=== PATIENT | male | born 1955 | race Caucasian/White ===

== ENCOUNTER 2018-02-24 09:19 | Inpatient (IN) | payer OTHER ==
--- NOTE | 2018-02-20 13:13 | NUR ---
LEFT MESSAGE FOR PT TO OBTAIN PRE-SURGICAL INFORMATION.
[~2018-02-24] VITALS: Ht 185.4 cm; Wt 125.2 kg
--- NOTE | ~2018-02-24 | H ---
[address] [address] HISTORY AND PHYSICAL Name: ALIE CEVALLOS Room: [address] IN ..#: [id number] Admission: 02/24/18 Attend Phys: Eusebio Clement DO Discharge: 02/27/18 Date of : 53 Report #: [id number] THIS REPORT FOR: //name// Please refer to the History and Physical performed in the physician's office. By: 1302Medical Records Staff ALVARO /DIMITRIS
[~2018-02-24 09:19] MED LIST: ASPIR 8181 MG PO; ATORVASTATIN CA40 MG PO; BENTYL 20 MG TA20 M1 PO; LISINOPRIL5 MG PO; PLAVIX 75 MG TA75 M1 PO; TOPROL XL50 MG PO
[2018-02-24 09:43] LABS: HEMATOCRIT 51.8 % (42.0-52.0); HEMOGLOBIN 17.5 gm/dL (14.0-18.0); MCHC 33.8 g/dL (28.0-37.0); MCV 91.7 fL (80.0-100.0); MPV 9.5 fl. (7.2-11.1); RBC 5.65 mil/uL (4.50-6.00); RDW-CV 14.4 % (10.5-14.5); WBC 8.3 thou/uL (4.0-11.0)
[2018-02-24 09:49] LABS: CALCIUM 8.4 mg/dL (8.5-10.1); CREATININE 1.2 mg/dL (0.6-1.3)
[2018-02-24 09:59] LABS: ALBUMIN 3.3 g/dL (3.4-5.0); TOTAL BILIRUBIN 0.6 mg/dL (<0.1-1.0); TOTAL PROTEIN 7.6 g/dL (6.4-8.2)
[2018-02-24 10:00] VITALS: BP 144/87
--- NOTE | 2018-02-24 13:03 | EKG ---
[place] [address] ELECTROCARDIOGRAM REPORT Name: ALIE CEVALLOS Room: [facility]#: [id number] Admission: 02/24/18 Attend Phys: Eusebio Clement DO Discharge: Date of : 53 Report #: [id number] THIS REPORT FOR: //name// [facility] Test Date: 2018-02-24 Test Time: 09:56:09 Pat Name: ALIE CEVALLOS Department: Room: Gender: M Payroll Technician: : 1955 Requested By: Eusebio Clement Order Number: [id number] Reading : Ke Zamarripa Measurements Intervals [place] Rate: 72 P: 47 IA: 196 QRS: 75 QRSD: 109 T: 18 QT: 439 QTc: 481 Interpretive Statements Sinus rhythm Ventricular premature complex Compared to ECG 10/22/2007 15:59:32 Ventricular premature complex(es) now present Electronically Signed On 02-24-2018 13:03:33 CDT by Ke Zamarripa [email or web address] <ELECTRONICALLY SIGNED> By: Ke Zamarripa MD, [facility] 02/24/18 1303 [id number] Ke Zamarripa MD, FACC /EPI
[2018-02-24 16:15] VITALS: BP 14/99; BP 145/99
--- NOTE | 2018-02-24 18:50 | NUR ---
PATIENT ADMITTED TO ROOM 222 FROM PACU S/P INCISIONAL AND RIGHT INGUINAL HERNIA REPAIR WITH MESH. PATIENT'S ASSESSMENT COMPLETED, ADMISSION HISTORY OBTAINED WITH ASSIST OF PATIENT'S . PATIENT MOANING AND UNABLE TO RATE PAIN SINCE BEING ADMITTED. PATIENT ON PARK ACTIVITIES COORDINATOR, TRACING SR/ST. PATIENT TITRATED FROM 50% VM TO 10L HIGH FLOW NASAL CANNULA, SATS MAINTAINING AT 92-93%, CONTINUOUS PULSE OX IN PLACE. PATIENT'S NELSON PATENT AND DRAINING. MIDLINE ABDOMINAL DRESSING INTACT WITH BRENDA DRAIN IN PLACE. DRESSING TO RIGHT GROIN INTACT WITH SLING IN PLACE. SCDS IN PLACE. SALINE LOCK PATENT. PATIENT GIVEN PAIN X 1 WITH GOOD RELIEF. ENCOURAGED PATIENT TURN, DEEP BREATH AND COUGH, PILLOW IN PLACE WITH ABDOMINAL BINDER IN PLACE. FAMILY AT BEDSIDE THIS SHIFT. FALL PRECAUTIONS IN PLACE. CALL LIGHT WITHIN REACH. WILL CONTINUE WITH PLAN OF CARE.
[2018-02-24 20:00] VITALS: BP 136/96
[2018-02-25] VITALS: BP 149/99
[2018-02-25 04:00] VITALS: BP 135/91
[2018-02-25 04:53] LABS: HEMATOCRIT 50.3 % (42.0-52.0); HEMOGLOBIN 16.9 gm/dL (14.0-18.0); MCH 30.9 pg (26.0-34.0); MCHC 33.6 g/dL (28.0-37.0); MCV 91.9 fL (80.0-100.0); NUCLEATED RBCS 0 /100WBC; PLATELET COUNT* 178 thou/uL (150-400); RBC 5.48 mil/uL (4.50-6.00); WBC 11.7 thou/uL (4.0-11.0)
--- NOTE | 2018-02-25 05:03 | NUR ---
ASSUMED PT BNCARE AT 1930, PT IS A&OX4, PT IS TRACING NDR ON THE MONITOR, ON 11LHFNC, PT STILL C/O PAIN, PRN PAIN MEDICATIONS GIVEN PER AUG. PT HAS A NELSON TO DD, MIDLINE INCISION, CLOSED WITH YESY, RIGHT GROIN INCISION, INCISIONS CDI AND COVERED. PT HAS ABD BINDER IN PLACE, BRENDA DRAIN TO LUQ. BED IN LOW POSITION, CALL LIGHT IN REACH, BED ALARM ON, YELLOW ARM BAND AND SOCKS IN PLACE. HOURLY ROUNDING COMPLETED FOR PT SAFETY.
[2018-02-25 05:07] LABS: CALCIUM 8.1 mg/dL (8.5-10.1); CREATININE 1.2 mg/dL (0.6-1.3); POTASSIUM 4.1 mmol/L (3.5-5.1)
[2018-02-25 05:55] LABS: ABSOLUTE LYMPHOCYTES 1.4 thou/uL (0.8-5.3); ABSOLUTE MONOCYTES 0.2 thou/uL (0.0-1.2); ABSOLUTE NEUTROPHILS 10.1 thou/uL (1.6-8.1); ANISOCYTOSIS 1+; PLATELET ESTIMATE ADEQUATE; POIKILOCYTOSIS 1+
[2018-02-25 07:30] VITALS: BP 151/99
[2018-02-25 09:13] LABS: HBsAG-EMPLOYEE EXPOSURE Negative (Negative)
--- NOTE | 2018-02-25 10:57 | NUR ---
Pt was asleep when CM went to assess, will f/u later
[2018-02-25 12:14] VITALS: BP 159/93
[2018-02-25 17:16] VITALS: BP 110/79
--- NOTE | 2018-02-25 18:02 | NUR ---
pt up in chair with family visiting. abd binder in place, pain meds given as ordered with stated relief on reassessment. pt tolerated full liquid diet. pt able to make needs known, call light in reach
[2018-02-25 19:35] VITALS: BP 115/67
[2018-02-26] VITALS (7 sets, daily range): BP systolic 108–124; BP diastolic 71–80
--- NOTE | 2018-02-26 04:09 | NUR ---
END SHIFT: PT RESTED WELL UNTIL ABOUT 0230. STARTED HAVING PAIN IN ABD AFTER A BED CHANGE WITH TURNING INVOLVED. PAIN RELIVED WITH ORAL MEDICATIONS. 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 NO OTHER COMPLAINTS AT THIS TIME. REMAINS ON 2L NC. BS ARE VERY HYPOACTIVE. PT IS NOT REPORTING ANY PASSING OF GAS AT THIS TIME. NO N/V. NELSON REMOVED AT 1945- TOLERATED WELL. HAS VOIDED IN URINAL WITHUT DIFFICULTY THIS SHIFT. MIDLINE/GROIN INCISIONS ARE COVERED WITH BANDAGES THAT ARE CLEAN/DRY/INTACT. ABD BINDER IN PLACE. BRENDA DRAIN TO LLQ DRAINING OUT SMALL AMT OF BLOODY DRAINAGE. SCROTAL EDEMA NOTED. SAFETY PRECAUTIONS IN PLACE. VSS. CALL LIGHT IN REACH. PERFORMED HOURLY ROUNDING. WILL CONT TO MONITOR.
[2018-02-26 07:53] LABS: HEMATOCRIT 48.2 % (42.0-52.0); MCH 30.6 pg (26.0-34.0); MCHC 33.1 g/dL (28.0-37.0); MCV 92.4 fL (80.0-100.0); MPV 10.5 fl. (7.2-11.1); RBC 5.22 mil/uL (4.50-6.00); RDW-CV 14.5 % (10.5-14.5); WBC 12.5 thou/uL (4.0-11.0)
[2018-02-26 08:11] LABS: CALCIUM 8.3 mg/dL (8.5-10.1); POTASSIUM 3.8 mmol/L (3.5-5.1)
--- NOTE | 2018-02-26 11:38 | NUR ---
TOOK OVER CARE OF PATIENT AT 0930 TODAY, AGREE WITH PREVIOS NURSES ASSESSSMENT. PATIENT IS ALERT AND ORIENTED, VERY PLEASANT. PATIENT HAD NO COMPLAINTS OF PAIN SO FAR TODAY. CALL LIGHT IS IN REACH, WILL CONTINUE TO MONITOR.
[2018-02-26] MEDS ORDERED: NORCO 5-325 TA1 EACH PO (14:40)
--- NOTE | 2018-02-26 17:15 | NUR ---
PATIENT HAS BEEN ALERT AND ORIENTED TODAY VERY PLEASANT. SOME COMPLAINTS OF PAIN MOSTLY WHEN SITTING AND TRYING TO STAND UP, DR PEREA WANTS PATIENT TO STAY SOME LONGER AND GET SOME STRENGTH BUILT UP. BRENDA DRAIN IS PUTTING OUT SOME SEROUSANGUINEOUS DRAINAGE. CALL LIGHT IS IN REACH, WILL CONTINUE TO MONITOR.
[2018-02-27] VITALS: BP 92/69
[2018-02-27 04:00] VITALS: BP 163/104
[2018-02-27 04:22] LABS: HEMATOCRIT 47.7 % (42.0-52.0); HEMOGLOBIN 15.7 gm/dL (14.0-18.0); MCH 30.5 pg (26.0-34.0); MCV 92.5 fL (80.0-100.0); MPV 9.7 fl. (7.2-11.1); RBC 5.15 mil/uL (4.50-6.00); RDW-CV 14.4 % (10.5-14.5); WBC 12.1 thou/uL (4.0-11.0)
[2018-02-27 04:50] LABS: CALCIUM 8.4 mg/dL (8.5-10.1); CREATININE 1.5 mg/dL (0.6-1.3); POTASSIUM 3.7 mmol/L (3.5-5.1)
--- NOTE | 2018-02-27 05:35 | NUR ---
ASSUME DPT CARE AT 1930, PT IS A&OX4, PT IS MED SURG, ON RA VSS. PT DENIES ANY PAIN OR NEEDS AT THIS TIME. PT HAS ABD MIDLINE INCISION, CLOSED BY YESY, HORIZONTAL GROIN INCISION, CLOSED BY YESY. ABD BINDER IN PLACE. PT SLEPT MOST OF THE NIGHT. BED IN LOW POSITION, CALL LIGHT IN REACH, BED ALARM ON, YELLOW ARM BAND AND SOCKS IN PLACE. HOURLY ROUNDING COMPLETED FOR PT SAFETY.
--- NOTE | 2018-02-27 08:02 | NUR ---
Spoke with nurse, surgery wants Pt to go to rehab. CM informed nurse that a consult and OT or ST eval would need to be ordered. CM contacted rehabilitation technician to see if Pt would qualify. CM does not anticipate that Pt has a qualifying rehab dx, awaiting liaison decision.
[2018-02-27 08:30] VITALS: BP 126/89
[2018-02-27 12:23] VITALS: BP 107/78
[2018-02-27 13:51] VITALS: BP 107/78
--- NOTE | 2018-02-27 13:53 | NUR ---
SW received notification that pt was to dc home today per clearance from surgery. CARROL met with pt to discuss safe dc planning. Plan for pt to dc home with today with services to follow. Pt preference for [facility], SW faxed referral and orders to [facility] at ph [phone] and fax [phone]. Pt says he is able to have a ride home and did not express any other dc needs at this time.
--- NOTE | 2018-02-27 15:30 | NUR ---
PATIENT IS ALERT AND ORIENTED TODAY VERY PLEASANT. UP WITH STAND BY GAIT BELT AND WALKER. VITAL SIGNS HAVE BEEN STABLE ON ROOM AIR TODAY. SOME PAIN THAT IS CONTROLLED WELL WITH ORAL PAIN MEDICATION. PATIENT IS BEING DISCHARGED TO HOME WITH HOME HEALTH. LEFT WITH AND FATHER IN LAW. PRESCRIPTIONS GIVEN WITH DISCHARGE INSTRUCTIONS AND QUESTIONS AND ANSWERED FOR PATIENT AND FAMILY.
--- NOTE | 2018-03-02 15:06 | PATH ---
[address] [address] PATHOLOGY RPT PROCEDURE Name: JORGE CEVALLOS Room: [address] IN ..#: [id number] Admission: 02/24/18 Date of : 53 Discharge: 02/27/18 Report #: [id number] Path Case #: [id number] [facility] Accession Number: [id number] . 01 Material submitted: . INCARCERATED FAT, INGUINAL HERNIA . 01 Clinical history: . Hernia, inguinal; incisional and inguinal hernia . 02 Diagnosis: Incarcerated fat: - Benign fat. (JENNIFER:pit 02/27/2018) QTP/03/02/2018 . 02 Electronically signed: . José Antonio Rodriguez MD, Pathologist NPI- [id number] . 01 Gross description: . The specimen is received in a minute amount of formalin, labeled "Jorge Cevallos, incarcerated fat". Received is a large amount of yellow-breaux lobulated tissue measuring 14.5 x 12.7 x 3.6 cm in greatest dimensions. Sectioning reveals yellow-breaux, lobulated cut surfaces throughout with no grossly distinct nodules or lesions. The specimen is submitted representatively in cassette A1. (CAA; 02/26/2018) QAC/QAC . 02 Pathologist provided ICD-10: K40.90 . 02 CPT . 913245 Performed at: [address], [place] [id number] MD To Martinez MD Phone: [phone] Performed at: 02 [facility] [address], [place], [place] [id number] MD José Antonio Rodriguez MD Phone: [phone]
--- NOTE | 2018-03-15 10:40 | OP ---
[address] [address] OPERATIVE REPORT Name: ALIE CEVALLOS Room: [address] IN M.R.#: [id number] Admission: 02/24/18 Attend Phys: Eusebio Clement DO Discharge: 02/27/18 Date of : 53 Report #: [id number] THIS REPORT FOR: //name// CC: Eusebio Ordaz DATE OF SERVICE: 02/24/2018 REFERRING PHYSICIAN: Dr. Chanda Ordaz. PREOPERATIVE DIAGNOSES: Incisional hernia incarcerated and very large right inguinal incarcerated hernia. POSTOPERATIVE DIAGNOSES: Incisional hernia incarcerated and very large right inguinal incarcerated hernia. PROCEDURE: Incisional hernia repair with 10 x [address] mesh and repair of a large incarcerated right inguinal hernia with 11 x [address] mesh. SURGEON: Eusebio Clement DO. DIRECTOR PHARMACOLOGY: Michael Mccoy DO SECOND FIBER DRIER OPERATOR: Latesha Howell DO ANESTHESIA: General endotracheal. ESTIMATED BLOOD LOSS: Less than 50 mL. COMPLICATIONS: None. DESCRIPTION OF PROCEDURE: After obtaining proper consents and discussing risks and complications with the patient, he was taken to the operating room, laid in the supine position and administered general anesthesia. He was then prepped and draped in the usual fashion. A timeout was performed. We confirmed the appropriate patient and procedure. Preoperative antibiotics had been given. A Hodges catheter had also been inserted preoperatively. We then made a midline supraumbilical skin incision and carried this down inferiorly around the lateral aspect of the umbilicus. The incision was carried down through the skin and the subcutaneous tissue using electrocautery for hemostasis. Once we encountered the hernia sac, the hernia sac was opened. It was then completely dissected free all the way out to the fascial edges. There were multiple small hernias along the midline just above and just below the umbilicus. These were all connected and the hernia sac was completely excised and [place] [address] OPERATIVE REPORT Name: ALIE CEVALLOS Room: [address]#: [id number] Admission: 02/24/18 Attend Phys: Eusebio Clement DO Discharge: 02/27/18 Date of : 53 Report #: [id number] dissected along the fascia and the subcutaneous tissue widely out so we could place some wide sutures. We then measured the defect. The total defect measured approximately 5 cm long x about 4 cm wide. We elected to use a 10 x [address] mesh, which was inserted and sutured in place using approximately 14 sutures of 0 Prolene in a U-stitch going out through the fascia down into the mesh and then back up through the fascia. Once these were all placed, we checked to assure that there were no gaps in them. We tied all of these sutures. We then closed the fascia over top of the mesh as well using a running 0 Prolene suture. The subcutaneous tissues were then closed using 3-0 Vicryl suture and the skin was closed using inocencio. We then turned our attention to the right inguinal hernia. An incision approximately 6 cm long was made midway between the ASIS and pubic tubercle. This incision was carried down through the skin and the subcutaneous tissue using electrocautery for hemostasis. Once the external oblique fascia was encountered, it was incised along its fibers, grasped and elevated, and then dissected free from the internal oblique muscle. The internal oblique muscle was then split. We also split some of the rectus fascia as well. The patient was quite morbidly obese, so this was quite deep and we had to extend the incision slightly in order to get down farther. We then identified the transversalis fascia, which was bluntly opened using a hemostat. I then began palpation and identified a large indirect inguinal hernia. We tried for quite some time, well over an hour, to reduce the fat, which was down into the patient's scrotum back into the peritoneal cavity. However, even with opening up the external ring I was unable to reduce this back. Eventually, we did reduce this fat back in outside the external ring and outside the external oblique fascia from the scrotum. We then identified the testicle and the spermatic cord structures. I then dissected this fat away and identified that it was all just preperitoneal fat. It was completely excised using electrocautery. Following this, I then developed the preperitoneal space to allow for placement of an 11 x [address] mesh. This mesh was sutured in place using 0 PDS suture to the transversalis fascia. We then closed the internal oblique muscle over top of this and then closed the external oblique fascia over top of that. The subcutaneous tissues were closed using 3-0 Vicryl suture. The skin was closed using inocencio again. The patient was then awakened in the operating room and transported to recovery room in stable condition after sterile dressings were placed. Sponge, needle and instrument counts were correct after both of the procedures. <ELECTRONICALLY SIGNED> By: Eusebio Clement DO 03/15/18 1040 1411 1825Asaniya Clement DO /nt
== END 2018-02-27 15:45 | disposition home or self-care (01) | DRG 351 ==
LOC: M.SUR 09:19 → M.TBA 14:02 → M.2W 14:02 → M.SUR 16:15 → M.2W 16:48
PROVIDERS: Specialist; ADMIT Surgery
PROC: 0WUF0JZ Supplement Abdominal Wall with Synthetic Substitute, Open Approach (ICD-10-PCS; principal; 2018-02-24)
PROC: 0YU50JZ Supplement Right Inguinal Region with Synthetic Substitute, Open Approach (ICD-10-PCS; principal; 2018-02-24)
DX: K40.30 Unilateral inguinal hernia, with obstruction, without gangrene, not specified as recurrent (principal); K43.0 Incisional hernia with obstruction, without gangrene; Z79.899 Other long term (current) drug therapy; Z79.82 Long term (current) use of aspirin; Z85.038 Personal history of other malignant neoplasm of large intestine; Z80.0 Family history of malignant neoplasm of digestive organs; Z81.8 Family history of other mental and behavioral disorders